=== PATIENT | male | born 1950 | race Caucasian/White ===

== ENCOUNTER 2017-10-19 17:12 | Inpatient (IN) | payer OTHER, MEDICAID, MEDICARE ==
[2017-10-19] MEDS: ASPIRIN 325 MG TAB PO (20:20)
[2017-10-19 20:22] LABS: ADD MAN DIFF? NO
[2017-10-19 20:25] LABS: WHITE BLOOD COUNT 6.5 10^3/ul (4.8-10.8)
[2017-10-19 20:25] LABS: BASOPHILS % 0.5 % (0.0-2.0); EOSINOPHILS # 0.2 10^3/ul (0.0-0.5); EOSINOPHILS % 2.9 % (0.0-7.0); HEMATOCRIT 46.3 % (42.0-52.0); HEMOGLOBIN 15.6 g/dl (14.0-18.0); LYMPHOCYTES # 1.6 10^3/ul (0.8-2.9); LYMPHOCYTES % 24.7 % (15.0-51.0); MEAN CORPUSCULAR HEMOGLOBIN 28.8 pg (29.0-33.0); MEAN CORPUSCULAR HGB CONC 33.7 g/dl (32.0-37.0); MEAN CORPUSCULAR VOLUME 85.6 fl (82.0-101.0); MEAN PLATELET VOLUME 10.1 fl (7.4-10.4); MONOCYTE # 0.6 10^3/ul (0.3-0.9); MONOCYTES % 8.4 % (0.0-11.0); NEUTROPHIL # 4.1 10^3/ul (1.6-7.5); PLATELET COUNT 164 10^3/UL (140-415); RED BLOOD COUNT 5.41 10^6/ul (4.70-6.10); RED CELL DISTRIBUTION WIDTH 12.8 % (11.5-14.5)
[2017-10-19 20:44] LABS: ANION GAP 15 (8-16); BLOOD UREA NITROGEN 19 mg/dl (7-20); CALCIUM 9.4 mg/dl (8.4-10.2); CARBON DIOXIDE 29 mmol/L (21-31); CHLORIDE 102 mmol/L (97-110); CREATININE 0.98 mg/dl (0.61-1.24); GLUCOSE 120 mg/dl (70-220); POTASSIUM 4.4 mmol/L (3.5-5.1); SODIUM 142 mmol/L (135-144)
[2017-10-19 20:54] LABS: B-TYPE NATRIURETIC PEPTIDE 29 PG/ML (0-125); TROPONIN-I 0.086 ng/ml (0.00-0.12)
[2017-10-19] MEDS: LIDOCAINE/MYLANTA 40 ML BTL PO (22:01)
[2017-10-19] MEDS: NITROGLYCERIN (SL) 0.4 MG TAB SL (23:56)
[2017-10-20 00:53] LABS: TROPONIN-I 0.387 ng/ml (0.00-0.12)
[2017-10-20] MEDS ORDERED: NITROGLYCERIN (SL) 0.4 MG TAB SL (02:00)
[2017-10-20] MEDS ORDERED: DOCUSATE SODIUM 100 MG CAP PO (02:00)
[2017-10-20] MEDS ORDERED: NACL 0.9% 3 ML SYG IV (02:00)
[2017-10-20] MEDS ORDERED: BISACODYL (EC) 5 MG TAB PO (02:00)
[2017-10-20] MEDS ORDERED: ONDANSETRON 4 MG INJ IV (02:00)
[2017-10-20] MEDS: ENOXAPARIN 100 MG/ML SYG SC ×3 (02:15→20:48)
[2017-10-20] MEDS: NITROGLYCERIN 2% 1 GM OINT PKT TD (02:16)
[2017-10-20] MEDS: SOD CHLORIDE 0.9% 1,000 ML IV ×2 (03:26→14:55)
[2017-10-20] MEDS: morphine 2 MG INJ IV (03:39)
[2017-10-20] MEDS ORDERED: RANITIDINE 150 MG TAB PO (05:00)
[2017-10-20] MEDS: ATORVASTATIN 80 MG TAB PO ×2 (06:01→20:46)
[2017-10-20 07:15] LABS: ADD MAN DIFF? NO
[2017-10-20 07:21] LABS: WHITE BLOOD COUNT 7.6 10^3/ul (4.8-10.8)
[2017-10-20 07:21] LABS: BASOPHILS % 0.5 % (0.0-2.0); EOSINOPHILS # 0.2 10^3/ul (0.0-0.5); EOSINOPHILS % 2.4 % (0.0-7.0); HEMATOCRIT 44.3 % (42.0-52.0); LYMPHOCYTES # 1.9 10^3/ul (0.8-2.9); LYMPHOCYTES % 24.8 % (15.0-51.0); MEAN CORPUSCULAR HEMOGLOBIN 28.8 pg (29.0-33.0); MEAN CORPUSCULAR HGB CONC 33.9 g/dl (32.0-37.0); MEAN PLATELET VOLUME 10.1 fl (7.4-10.4); MONOCYTE # 0.6 10^3/ul (0.3-0.9); MONOCYTES % 8.2 % (0.0-11.0); NEUTROPHIL # 4.8 10^3/ul (1.6-7.5); NEUTROPHILS % 63.6 % (39.0-77.0); PLATELET COUNT 147 10^3/UL (140-415); RED BLOOD COUNT 5.21 10^6/ul (4.70-6.10); RED CELL DISTRIBUTION WIDTH 12.8 % (11.5-14.5)
[2017-10-20 07:36] LABS: HEMOGLOBIN A1C 5.6 % (0-5.9)
[2017-10-20 07:39] LABS: ALANINE AMINOTRANSFERASE 48 IU/L (13-69); ALBUMIN 3.8 g/dl (3.3-4.9); ALBUMIN/GLOBULIN RATIO 1.31; ALKALINE PHOSPHATASE 81 IU/L (42-121); ANION GAP 16 (8-16); ASPARTATE AMINO TRANSFERASE 74 IU/L (15-46); BILIRUBIN,INDIRECT 0.6 mg/dl (0-1.1); BILIRUBIN,TOTAL 0.6 mg/dl (0.2-1.3); BLOOD UREA NITROGEN 17 mg/dl (7-20); CALCIUM 8.7 mg/dl (8.4-10.2); CARBON DIOXIDE 27 mmol/L (21-31); CHLORIDE 103 mmol/L (97-110); CREATININE 0.98 mg/dl (0.61-1.24); GLUCOSE 114 mg/dl (70-220); POTASSIUM 4.4 mmol/L (3.5-5.1); SODIUM 142 mmol/L (135-144); TOTAL PROTEIN 6.7 g/dl (6.1-8.1)
[2017-10-20 07:42] LABS: CREATINE KINASE 371 IU/L (23-200); INR 1.09; PROTIME 14.2 Sec (11.9-14.9); PT RATIO 1.1
[2017-10-20 07:43] LABS: PARTIAL THROMBOPLASTIN TIME 36.8 Sec (25.0-35.0)
[2017-10-20 07:49] LABS: CHOLESTEROL 185 mg/dl (100-200)
[2017-10-20 07:49] LABS: CHOL/HDL RATIO 6.6 RATIO; HDL CHOLESTEROL 28 mg/dl (30-78); LDL CHOLESTEROL,CALCULATED 124 mg/dl; TRIGLYCERIDES 167 mg/dl (0-149)
[2017-10-20] MEDS: ASPIRIN 81 MG TAB PO (08:14)
[2017-10-20 08:32] LABS: MAGNESIUM 2.2 mg/dl (1.7-2.5)
[2017-10-20 08:42] LABS: B-TYPE NATRIURETIC PEPTIDE 110 PG/ML (0-125)
[2017-10-20] MEDS ORDERED: METOPROLOL 25 MG TAB PO ×2 (09:00)
[2017-10-20 09:50] LABS: CREATINE KINASE 416 IU/L (23-200)
[2017-10-20 10:00] LABS: CK INDEX 7.7
[2017-10-20 18:40] LABS: CREATINE KINASE 466 IU/L (23-200)
[2017-10-20 18:53] LABS: CK INDEX 8.3
[2017-10-20] MEDS: BENAZEPRIL 10 MG TAB PO (20:46)
[2017-10-20] MEDS: ISOSORBIDE DINITRATE 20 MG TAB PO (20:46)
[2017-10-21 00:02] LABS: ADD UMIC NO; UR ASCORBIC ACID NEGATIVE (NEGATIVE); UR BILIRUBIN (Dip) NEGATIVE (NEGATIVE); UR BLOOD (Dip) NEGATIVE (NEGATIVE); UR CLARITY CLEAR (CLEAR); UR COLOR STRAW (YELLOW); UR GLUCOSE (Dip) 2+ mg/dL (NEGATIVE); UR KETONES (Dip) NEGATIVE (NEGATIVE); UR LEUKOCYTE ESTERASE (Dip) NEGATIVE Leu/ul (NEGATIVE); UR NITRITE (Dip) NEGATIVE (NEGATIVE); UR SPECIFIC GRAVITY (Dip) 1.004 (1.003-1.030); UR TOTAL PROTEIN (Dip) NEGATIVE (NEGATIVE); UR UROBILINOGEN (Dip) NEGATIVE (NEGATIVE)
[2017-10-21 01:31] LABS: CREATINE KINASE 401 IU/L (23-200)
[2017-10-21 01:45] LABS: CK INDEX 7.2
[2017-10-21] MEDS: SOD CHLORIDE 0.9% 1,000 ML IV (06:10)
[2017-10-21] MEDS: ISOSORBIDE DINITRATE 20 MG TAB PO ×3 (09:05→21:08)
[2017-10-21] MEDS: ASPIRIN 81 MG TAB PO (09:05)
[2017-10-21] MEDS: BENAZEPRIL 10 MG TAB PO ×2 (09:05→21:08)
[2017-10-21] MEDS: ENOXAPARIN 100 MG/ML SYG SC ×2 (11:08→21:10)
[2017-10-21 15:18] LABS: CREATINE KINASE 214 IU/L (23-200)
[2017-10-21] MEDS: ATORVASTATIN 80 MG TAB PO (21:08)
[2017-10-22 06:31] LABS: CREATINE KINASE 142 IU/L (23-200)
[2017-10-22 06:41] LABS: CK INDEX 3.3
[2017-10-22 06:44] LABS: CK-MB 4.64 ng/ml (0.0-2.4)
[2017-10-22] MEDS: BENAZEPRIL 10 MG TAB PO ×2 (09:00→21:02)
[2017-10-22] MEDS: ISOSORBIDE DINITRATE 20 MG TAB PO ×3 (09:00→21:03)
[2017-10-22] MEDS: ASPIRIN 81 MG TAB PO (09:12)
[2017-10-22] MEDS: ENOXAPARIN 100 MG/ML SYG SC ×2 (09:15→21:04)
[2017-10-22] MEDS: morphine 2 MG INJ IV (09:16)
[2017-10-22] MEDS: DIAZEPAM 5 MG TAB PO (13:00)
[2017-10-22] MEDS: ATORVASTATIN 80 MG TAB PO (21:02)
[2017-10-23 06:59] LABS: ADD MAN DIFF? NO
[2017-10-23 07:12] LABS: WHITE BLOOD COUNT 5.9 10^3/ul (4.8-10.8)
[2017-10-23 07:12] LABS: BASOPHILS % 0.7 % (0.0-2.0); EOSINOPHILS # 0.2 10^3/ul (0.0-0.5); EOSINOPHILS % 3.1 % (0.0-7.0); HEMATOCRIT 46.1 % (42.0-52.0); HEMOGLOBIN 15.5 g/dl (14.0-18.0); LYMPHOCYTES # 1.6 10^3/ul (0.8-2.9); LYMPHOCYTES % 27.2 % (15.0-51.0); MEAN CORPUSCULAR HEMOGLOBIN 28.9 pg (29.0-33.0); MEAN CORPUSCULAR HGB CONC 33.6 g/dl (32.0-37.0); MEAN PLATELET VOLUME 10.4 fl (7.4-10.4); MONOCYTE # 0.5 10^3/ul (0.3-0.9); MONOCYTES % 9.1 % (0.0-11.0); NEUTROPHIL # 3.5 10^3/ul (1.6-7.5); NEUTROPHILS % 59.7 % (39.0-77.0); PLATELET COUNT 164 10^3/UL (140-415); RED BLOOD COUNT 5.36 10^6/ul (4.70-6.10); RED CELL DISTRIBUTION WIDTH 13.2 % (11.5-14.5)
[2017-10-23 07:32] LABS: INR 0.99; PROTIME 13.2 Sec (11.9-14.9)
[2017-10-23 07:33] LABS: PARTIAL THROMBOPLASTIN TIME 38.5 Sec (25.0-35.0)
[2017-10-23 07:40] LABS: ALANINE AMINOTRANSFERASE 93 IU/L (13-69); ALBUMIN 4.3 g/dl (3.3-4.9); ALBUMIN/GLOBULIN RATIO 1.48; ALKALINE PHOSPHATASE 77 IU/L (42-121); ANION GAP 18 (8-16); ASPARTATE AMINO TRANSFERASE 125 IU/L (15-46); BILIRUBIN,INDIRECT 0.6 mg/dl (0-1.1); BILIRUBIN,TOTAL 0.6 mg/dl (0.2-1.3); BLOOD UREA NITROGEN 21 mg/dl (7-20); CALCIUM 9.2 mg/dl (8.4-10.2); CARBON DIOXIDE 24 mmol/L (21-31); CHLORIDE 104 mmol/L (97-110); CREATININE 1.05 mg/dl (0.61-1.24); GLUCOSE 109 mg/dl (70-220); POTASSIUM 4.4 mmol/L (3.5-5.1); SODIUM 142 mmol/L (135-144); TOTAL PROTEIN 7.2 g/dl (6.1-8.1)
[2017-10-23] MEDS: DIAZEPAM 5 MG TAB PO (07:58)
[2017-10-23] MEDS: ASPIRIN 81 MG TAB PO (07:58)
[2017-10-23] MEDS: ISOSORBIDE DINITRATE 20 MG TAB PO ×3 (07:59→22:36)
[2017-10-23] MEDS: BENAZEPRIL 10 MG TAB PO ×2 (07:59→20:59)
[2017-10-23] MEDS: ENOXAPARIN 100 MG/ML SYG SC (08:00)
[2017-10-23] MEDS ORDERED: IODIXANOL LOCM 100 ML BTL (08:38)
[2017-10-23] MEDS ORDERED: HEPARIN 1000 UNITS/ML 10 ML INJ (08:38)
[2017-10-23] MEDS ORDERED: FENTAnyl 50 MCG/ML VIAL (08:38)
[2017-10-23] MEDS ORDERED: MIDAZOLAM 1 MG/ML 2 ML INJ (08:38)
[2017-10-23] MEDS ORDERED: VERAPAMIL 5 MG INJ (08:38)
[2017-10-23] MEDS ORDERED: LIDOCAINE 1% (MDV) 20 ML INJ (08:38)
[2017-10-23] MEDS ORDERED: NITROGLYCERIN (IC) 100 MCG/ML INJ (08:39)
[2017-10-23] MEDS ORDERED: CLOPIDOGREL 300 MG TAB (09:57)
[2017-10-23] MEDS ORDERED: niCARdipine 25 MG INJ (10:19)
[2017-10-23] MEDS ORDERED: IOHEXOL 350MG/ML 50 ML BTL (10:26)
[2017-10-23] MEDS ORDERED: ZOLPIDEM 5 MG TAB PO (11:00)
[2017-10-23] MEDS ORDERED: OXYCODONE/ACETAMINOPHEN (5/325) TAB PO (11:00)
[2017-10-23] MEDS ORDERED: ACETAMINOPHEN 325 MG TAB PO (11:00)
[2017-10-23] MEDS ORDERED: ONDANSETRON 4 MG INJ IV (11:00)
[2017-10-23] MEDS ORDERED: AL HYDROX/MG HYDROX/SIMETH 30 ML CUP PO (11:00)
[2017-10-23] MEDS: SOD CHLORIDE 0.9% 1,000 ML IV (11:03)
[2017-10-23] MEDS: ATORVASTATIN 80 MG TAB PO (20:58)
[2017-10-24 05:54] LABS: ADD MAN DIFF? NO
[2017-10-24 06:03] LABS: WHITE BLOOD COUNT 6.4 10^3/ul (4.8-10.8)
[2017-10-24 06:03] LABS: BASOPHILS % 0.5 % (0.0-2.0); EOSINOPHILS # 0.2 10^3/ul (0.0-0.5); EOSINOPHILS % 3.1 % (0.0-7.0); HEMATOCRIT 41.5 % (42.0-52.0); LYMPHOCYTES # 1.2 10^3/ul (0.8-2.9); LYMPHOCYTES % 19.2 % (15.0-51.0); MEAN CORPUSCULAR HEMOGLOBIN 28.9 pg (29.0-33.0); MEAN CORPUSCULAR HGB CONC 33.7 g/dl (32.0-37.0); MEAN CORPUSCULAR VOLUME 85.7 fl (82.0-101.0); MEAN PLATELET VOLUME 10.1 fl (7.4-10.4); MONOCYTE # 0.6 10^3/ul (0.3-0.9); NEUTROPHIL # 4.3 10^3/ul (1.6-7.5); NEUTROPHILS % 66.9 % (39.0-77.0); PLATELET COUNT 146 10^3/UL (140-415); RED BLOOD COUNT 4.84 10^6/ul (4.70-6.10); RED CELL DISTRIBUTION WIDTH 13.2 % (11.5-14.5)
[2017-10-24 06:51] LABS: ANION GAP 13 (8-16); BLOOD UREA NITROGEN 20 mg/dl (7-20); CALCIUM 8.7 mg/dl (8.4-10.2); CARBON DIOXIDE 28 mmol/L (21-31); CHLORIDE 104 mmol/L (97-110); CREATINE KINASE 77 IU/L (23-200); CREATININE 0.99 mg/dl (0.61-1.24); GLUCOSE 110 mg/dl (70-220); POTASSIUM 4.1 mmol/L (3.5-5.1); SODIUM 141 mmol/L (135-144)
[2017-10-24 06:56] LABS: CK INDEX 1.9
[2017-10-24 07:02] LABS: CK-MB 1.47 ng/ml (0.0-2.4)
[2017-10-24] MEDS: CLOPIDOGREL 75 MG TAB PO (08:24)
[2017-10-24] MEDS: ISOSORBIDE DINITRATE 20 MG TAB PO (08:24)
[2017-10-24] MEDS: BENAZEPRIL 10 MG TAB PO (08:24)
[2017-10-24] MEDS: ASPIRIN (EC) 81 MG TAB PO (08:24)
== END 2017-10-24 10:50 | disposition home or self-care (01) | DRG 247 ==
LOC: MS4 10-20 01:19 → E/R 17:12 → ICU 10-23 10:53
PROC: 027034Z Dilation of Coronary Artery, One Artery with Drug-eluting Intraluminal Device, Percutaneous Approach (ICD-10-PCS; principal; 2017-10-23 08:30)
PROC: 4A023N7 Measurement of Cardiac Sampling and Pressure, Left Heart, Percutaneous Approach (ICD-10-PCS; 2017-10-23 08:30)
PROC: B211YZZ Fluoroscopy of Multiple Coronary Arteries using Other Contrast (ICD-10-PCS; 2017-10-23 08:30)
DX: I21.4 Non-ST elevation (NSTEMI) myocardial infarction (principal); E66.9 Obesity, unspecified; Z68.29 Body mass index [BMI] 29.0-29.9, adult; E78.5 Hyperlipidemia, unspecified; I10 Essential (primary) hypertension; I25.10 Atherosclerotic heart disease of native coronary artery without angina pectoris; K21.9 Gastro-esophageal reflux disease without esophagitis; N40.0 Benign prostatic hyperplasia without lower urinary tract symptoms; R73.03 Prediabetes
CPT/HCPCS: 36415; 71045; 71046; 80048; 80053; 80061; 81003; 82550; 82553; 83036; 83735; 83880; 84443; 84484; 85025; 85610; 85730; 87081; 93005; 93306; 93458; 96372; 99291-25